=== PATIENT | female | born 1960 | race Hispanic/Latino ===

== ENCOUNTER 2021-12-10 13:51 | Emergency (ER) | payer OTHER ==
[~2021-12-10] VITALS: Ht 162.6 cm; Wt 90.7 kg
[2021-12-10 13:53] VITALS: BP 162/67
[2021-12-10] MEDS ORDERED: CEPH500B PO (15:25)
== END 2021-12-10 15:57 | disposition home or self-care (01) ==
LOC: EDH 13:51
DX: L03.116 Cellulitis of left lower limb (principal); M32.9 Systemic lupus erythematosus, unspecified; J45.909 Unspecified asthma, uncomplicated; I10 Essential (primary) hypertension
CPT/HCPCS: 93971

== ENCOUNTER 2024-04-01 13:43 | Observation (INO) | payer BC ==
[~2024-04-01] VITALS: Ht 162.6 cm; Wt 90.7 kg
--- NOTE | 2024-04-01 13:52 | EKG ---
[facility] Test Date: 2024-04-01 Test Time: 13:49:44 Pat Name: CROW PATIÑO Department: EDH Room: ED Gender: F Angiography Technologist: [id number] : 1960 Requested By: MIHAELA SHAH Order Number: [id number] Reading MD: Arthur Baca Measurements Intervals [place] Rate: 101 P: 72 MS: 136 QRS: 51 QRSD: 99 T: 41 QT: 346 QTc: 448 Interpretive Statements Sinus tachycardia No previous ECG available for comparison Electronically Signed On 04-01-2024 20:02:49 [employer]OX INSPECT[employer] by Arthur Baca Please click the below link to view image of tracing.
[2024-04-01 14:20] LABS: BASOPHILS # (AUTO) 0.02 K/uL (0.00-0.20); BASOPHILS % (AUTO) 0.2 % (0.0-5.0); HEMATOCRIT 35.5 % (36-48); IMMATURE GRANULOCYTE ABSOLUTE 0.08 K/uL (0-1); LYMPHOCYTES # (AUTO) 1.1 K/uL (1.0-4.8); LYMPHOCYTES % (AUTO) 8.4 % (21.0-51.0); MEAN CORPUSCULAR HEMOGLOBIN 26.5 pg (27.0-33.0); MEAN CORPUSCULAR HGB CONC 32.1 g/dL (32.0-36.0); MEAN CORPUSCULAR VOLUME 82.4 fL (79-99); MONOCYTES # (AUTO) 0.7 K/uL (0.1-1.0); MONOCYTES % (AUTO) 5.1 % (3.0-13.0); NEUTROPHILS # (AUTO) 11.4 K/uL (1.8-7.7); NEUTROPHILS % (AUTO) 85.7 % (40.0-77.0); PLATELET COUNT (AUTO) 290 K/uL (130-400); RED BLOOD CELL COUNT(AUTO) 4.31 MIL/uL (4.00-5.50); RED CELL DISTRIBUTION WIDTH 14.4 % (11.0-15.5); WHITE BLOOD COUNT (AUTO) 13.3 K/uL (4.8-10.8)
[2024-04-01 14:29] LABS: CREATININE 0.8 mg/dL (0.5-1.0); POTASSIUM 3.8 mmol/L (3.5-5.1)
--- NOTE | 2024-04-01 14:29 | HMCIMG ---
CHEST 1VW REASON: CP COMPARISON: None. FINDINGS: Single view of the chest was obtained. Lungs are clear. Heart size is normal. There is no pulmonary vascular congestion. Mediastinum and bony thorax appear unremarkable. IMPRESSION: 1. Normal single view chest x-ray.
[2024-04-01 14:39] LABS: ALBUMIN 3.5 g/dL (3.5-5.0); BILIRUBIN,DIRECT 0.2 mg/dL (0.0-0.3); BILIRUBIN,TOTAL 0.4 mg/dL (0.2-1.0)
[2024-04-01 14:45] LABS: B-TYPE NATRIURETIC PEPTIDE 118 pg/mL (0-100)
[2024-04-01] MEDS: ketOROlac 15MG/ML VIAL (15MG/ML) IV ONE (14:53)
[2024-04-01] MEDS: Solu-medROL 40MG VIAL IVP ONE (14:53)
--- NOTE | 2024-04-01 15:01 | ERN ---
General Chief Complaint: Chest Pain Stated Complaint: SENT BY DRCHEST PAIN Time Seen by MD: 13:46 History of Present Illness Initial Comments 64-year-old female history of hypertension and lupus, presents for left-sided chest pain for about 24 hours or so now. She has a reported pain such as this in the past. See associated with her lupus. She took steroids in the past and the pain resolved. Today she has taken 40 mg of prednisone oral, but she reports the pain persists. Described as left-sided chest pain. Does increase with lying flat and with certain positions. She reports mild shortness of breath. No dizziness, no vomiting, no cough congestion or sore throat, no other major complaints. Allergies: Coded Allergies: Sulfa (Sulfonamide Antibiotics) (Unverified Allergy, Unknown, 12/10/21) Home Meds Reported Medications Prednisone (Prednisone) 5 Mg Tablet, 5 MG PO DAILY, TAB 04/01/24 Hydroxychloroquine Sulfate (Hydroxychloroquine Sulfate) 200 Mg Tablet, 200 MG PO DAILY, TAB 04/01/24 Doxepin HCl (Doxepin HCl) 10 Mg Capsule, 10 MG PO HS, CAP 04/01/24 Montelukast Sodium (Montelukast Sodium) 10 Mg Tablet, 10 MG PO DAILY, TAB 04/01/24 Omeprazole (Omeprazole) 20 Mg Capsule.dr, 20 MG PO BID, CAP 04/01/24 Losartan Potassium (Losartan Potassium) 100 Mg Tablet, 100 MG PO HS, TAB 04/01/24 Past Medical History Past Medical History: Asthma, Hypertension, Other Medical History Other: LUPUS Past Surgical History: None ROS Dictation CONSTITUTIONAL: No chills, no fever, no weakness, no diaphoresis, no malaise. HEAD/FACE: No signs of trauma. EENT: No eye pain, no blurred vision, no tearing, no double vision, no ear pain, no ear discharge, no nose pain, no nasal congestion, no throat pain, no throat swelling, no mouth pain. RESPIRATORY: No cough, no orthopnea, no SOB, no stridor, no wheezing. CARDIOVASCULAR: Chest pain GASTROINTESTINAL/ABDOMINAL: No abdominal pain, no constipation, no diarrhea, no nausea, no vomiting. GENITOURINARY: No abnormal discharge, no dysuria, no frequent urination, no hematuria. No complaints of pain in the genitals. MUSCULOSKELETAL: No back pain, no gout, no joint pain, no joint swelling, no muscle pain, no muscle stiffness, no neck pain. INTEGUMENTARY: No change in color, no change in hair/nails, no dryness, no lesion, no lumps, no rash. NEUROLOGICAL/PSYCH: No anxiety, not depressed, no emotional problem, no headache, no numbness, no pre-existing deficit, no history of seizures, no tremors, no weakness. HEMATOLOGIC/LYMPHATIC: Not anemic, no history of blood clots, no apparent bleeding, no bruising, glands not swollen. All Systems Negative, Except as Noted. Physical Exam Physical Exam Dictation VITAL SIGNS: Reviewed. GENERAL APPEARANCE: Alert, oriented x3, no acute distress, obese. HEAD AND FACE: Non-traumatic. EYES: PERRL, pink conjunctivas, eyelid no trauma, anterior chamber clear. EARS: Pinnas intact and no signs of trauma or erythema. Ear canals clear and no discharge. TMs no erythema. NOSE: No discharge, no bleeding. OROPHARYNX: Mouth normal, teeth no caries, tongue pink. Pharynx clear, no erythema. Tonsils no exudates, no abscesses noted. Mucous membrane moist. NECK: Supple, non-tender, no thyromegaly, no masses, no JVD, no bruits. BREAST: Deferred. CHEST: No tenderness, no crepitus, no paradoxical movement, no retractions. LUNGS: Clear, well-ventilated, symmetric, no rales, no wheezing, no rhonchi, no stridor, good breath sounds bilaterally. HEART: Regular rate, regular rhythm, no murmur, no gallops. VASCULAR: No peripheral edema. ABDOMEN: Soft, positive bowel sounds, nondistended, no guarding, nontender, no rebound, no masses no hepatomegaly, no splenomegaly, no Quiros's sign, no hernias. RECTAL: Deferred. GENITAL: Deferred. NEUROLOGICAL: Normal speech, gross motor function intact, gross sensory function intact. MUSCULOSKELETAL: Neck nontender, full range of motion, back nontender, full range of motion. EXTREMITIES: Nontender, full range of motion. SKIN: Color pink, dry, no turgor, no rash, no lacerations, no abrasions, no contusions. LYMPHATICS: Deferred. Results Laboratory and Microbiology Lab and Micro Result Laboratory Tests Test 04/01/24 14:11 White Blood Count 13.3 K/uL (4.8-10.8) H Red Blood Count 4.31 MIL/uL (4.00-5.50) Hemoglobin 11.4 g/dL (12.0-16.0) L Hematocrit 35.5 % (36-48) L Mean Corpuscular Volume 82.4 fL (79-99) Mean Corpuscular Hemoglobin 26.5 pg (27.0-33.0) L Mean Corpuscular Hemoglobin Concent 32.1 g/dL (32.0-36.0) Red Cell Distribution Width 14.4 % (11.0-15.5) Platelet Count 290 K/uL (130-400) Mean Platelet Volume 10.4 fL (7.5-10.5) Immature Granulocyte % (Auto) 0.6 % (0-1) Neutrophils (%) (Auto) 85.7 % (40.0-77.0) H Lymphocytes (%) (Auto) 8.4 % (21.0-51.0) L Monocytes (%) (Auto) 5.1 % (3.0-13.0) Eosinophils (%) (Auto) 0.0 % (0.0-8.0) Basophils (%) (Auto) 0.2 % (0.0-5.0) Neutrophils # (Auto) 11.4 K/uL (1.8-7.7) H Lymphocytes # (Auto) 1.1 K/uL (1.0-4.8) Monocytes # (Auto) 0.7 K/uL (0.1-1.0) Eosinophils # (Auto) 0.00 K/uL (0.00-0.70) Basophils # (Auto) 0.02 K/uL (0.00-0.20) Absolute Immature Granulocyte (auto 0.08 K/uL (0-1) Nucleated Red Blood Cells 0.0 % (0.0-0.19) White Cell Morphology Comment See comments Erythrocyte Sedimentation Rate 50 MM/HR (0-30) H D-Dimer Quantitative (PE/DVT) 428 ng/mL (0-500) Sodium Level 138 mmol/L (136-145) Potassium Level 3.8 mmol/L (3.5-5.1) Chloride Level 101 mmol/L (101-111) Carbon Dioxide Level 28 mmol/L (21-32) Blood Urea Nitrogen 17 mg/dL (7-18) Creatinine 0.8 mg/dL (0.5-1.0) Glomerular Filtration Rate Calc 83 mL/min (>90) Random Glucose 127 mg/dL (70-105) H Hemoglobin A1c 5.5 % (4.0-6.0) Estimated Average Glucose (eAG) 111 mg/dL (70-126) Total Calcium 9.3 mg/dL (8.5-10.1) Total Bilirubin 0.4 mg/dL (0.2-1.0) Direct Bilirubin 0.2 mg/dL (0.0-0.3) Aspartate Amino Transf (AST/SGOT) 16 U/L (10-37) Alanine Aminotransferase (ALT/SGPT) 30 U/L (12-78) Alkaline Phosphatase 94 U/L (50-136) Total Creatine Kinase 78 U/L (21-232) Troponin I High Sensitivity 7 ng/L (4-50) C-Reactive Protein, Quantitative 73.90 mg/L (0.5-3.0) H B-Type Natriuretic Peptide 118 pg/mL (0-100) H Total Protein 8.0 g/dL (6.0-8.3) Albumin 3.5 g/dL (3.5-5.0) Lipase 19 U/L (16-77) Procalcitonin < 0.05 ng/mL (0.05-0.5) L Thyroid Stimulating Hormone (TSH) 0.80 uIU/mL (0.36-3.74) MDM CC: Chest pain Historian: Patient Comorbidities: Lupus, hypertension Limitations by social determinants of health: None Differential diagnosis: Pericarditis, ACS, pneumonia, pneumothorax, vascular pathology, other. EKG: Sinus rhythm, tachycardia, rate of 101, normal axis, good R-wave progression, intervals are stable. No STEMI. Independently interpreted by me. Vital signs: Mild tachycardia heart rate of 102, mild hypertension 153/86 otherwise vital signs stable and remained stable. Clinical exam is unremarkable. CXR (Independently interpreted by me): No focal infiltrates cardiomegaly or other abnormalities. Labs ( independently ordered and interpreted by me ): Leukocytosis 13.3k, left shift. No bands. Mild normocytic anemia hemoglobin 11.4.D-dimer is negative. Chemistry panel is negative. Liver enzymes are normal. Troponin is normal. Lipase is normal. BNP 118. The CRP is 73.9. Low risk Wells and negative D- dimer low suspicion for PE. I do not see any signs of ACS, but she has a heart score of three based on story, risk factors, age. Patient was given IV Toradol and steroids here in the ER. I suspect he may have pericarditis based on the presentation. We will admit for observation and further cardiac workup. Patient is agreeable to plan. ED Course Orders Procedure Category Date Status Time Cbc With Differential LAB 04/01/24 Complete 13:46 B-Type Natriuretic LAB 04/01/24 Complete Peptide 13:46 Chest 1vw RAD 04/01/24 Resulted 13:46 12 Lead Ekg Tracing- EKG 04/01/24 Complete Technical 13:46 Troponin I High LAB 04/01/24 Complete Sensitivity 13:46 Basic Metabolic Panel LAB 04/01/24 Complete 13:46 Lipase LAB 04/01/24 Complete 13:46 Hepatic Function Panel LAB 04/01/24 Complete 13:46 12 Lead Ekg Tracing- EKG 04/01/24 Logged Technical 13:46 Crp Quantitative LAB 04/01/24 Complete 13:57 Erythrocyte LAB 04/01/24 Complete Sedimentation Rate 13:57 D-Dimer LAB 04/01/24 Complete 13:57 Ketorolac PHA 04/01/24 Complete Tromethamine 15mg/Ml 14:00 Methylprednisolone PHA 04/01/24 Complete Succ 40mg (Solu-Medro 14:00 Current Medications Medications (Trade) Dose Ordered Sig/Rudy Route PRN Reason Start Time Stop Time Status Last Admin Dose Admin Ketorolac Tromethamine (toRADol) 15 mg ONCE ONCE IV 04/01/24 14:00 04/01/24 14:01 DC 04/01/24 14:53 Methylprednisolone Sodium Succinate (Solu-medROL 40MG) 40 mg ONCE ONCE IVP 04/01/24 14:00 04/01/24 14:01 DC 04/01/24 14:53 Vital Signs Date Time Temp Pulse Resp B/P (MAP) Pulse Ox O2 Delivery O2 Flow Rate FiO2 04/01/24 15:07 97.9 92 16 138/68 95 Room Air* 0 21 04/01/24 14:01 98.6 102 20 153/86 97 Room Air 0 DX & DISP Disposition: Inpatient Departure Impression: Primary Impression: Chest pain Condition: Stable Referrals: SELF,REFERRAL (PCP) MIHAELA SHAH DO Apr 01, 2024 15:01
[2024-04-01] MEDS ORDERED: OMEP20CA12 PO (16:14)
[2024-04-01] MEDS ORDERED: MONT-39 PO (16:14)
[2024-04-01] MEDS ORDERED: DOXE10CA2 PO (16:14)
[2024-04-01] MEDS ORDERED: PRED5TAB PO (16:14)
[2024-04-01] MEDS ORDERED: HYDR200T75 PO (16:14)
[2024-04-01] MEDS ORDERED: LOSA100T59 PO (16:14)
--- NOTE | 2024-04-01 16:27 | HP ---
[facility] Date of Service: Apr 01, 2024 Time of Service: 16:27 HISTORY OF PRESENT ILLNESS: DATE OF SERVICE: 04/01/2024 This 64-year-old female with past medical history of hypertension, history of lupus, history of hiatal hernia who presented to the hospital secondary to chest pain. Patient states since yesterday she has noted midsternal chest pain which radiates to her left neck. She denies any paresthesias in the upper extremity, nausea, vomiting associated with the pain. She does feel her midsternal area is tender to palpation and also gets pain with deep inspiration. She feels the pain is worse with lying flat and also with bending down. She has also felt short of breath with ambulation. She currently sees Rheumatology in [place]. She is on prednisone and Plaquenil for lupus. She denied any falls, syncopal episode. Denied any fever, chills. She feels she has generalized body aches. Secondary to non improving symptoms patient thereafter came to the ED for further evaluation. The patient's labs showed white count of 13.3, hemoglobin was 11.4, platelet count was 290k, sodium was 138, potassium was 3.8, creatinine was 0.8, blood glucose was 127, troponin was negative x1, BNP was 1 one eight Chest x-ray showed no acute infiltrates REVIEW OF SYSTEMS CONSTITUTIONAL: Denies fevers, chills, or night sweats. No unintentional weight loss reported. NEUROLOGICAL: Denies headache, amaurosis fugax, motor weakness, sensory de ficit, vertigo/spinning sensation, gait abnormalities, or tremors. ENT: No hearing loss, otalgia, otorrhea, rhinitis, rhinorrhea, hoarseness, or sore throat. CARDIOVASCULAR: Positive for chest pain, dyspnea on exertion. Denied any palpitations, orthopnea, PND PULMONARY: Denies any, cough, phlegm/sputum, hemoptysis, pleuritic chest pain. Positive for shortness of breath GASTROINTESTINAL: Denies any type of dysphagia to either liquids or solids. Denies nausea, vomiting, pyrosis, early satiety, abdominal pain, diarrhea, constipation, or changes in stool consistency or caliber. Denies coffee-ground emesis, hematemesis, hematochezia, or melanotic stools. GENITOURINARY: Denies frequency, urgency, nocturia, hematuria or incontinence (Storage/Irritative symptoms.) Low urinary stream, straining to void, urinary intermittency or hesitancy, splitting of the voiding stream, terminal dribbling. ENDOCRINOLOGIC: Denies polyuria, polydipsia, polyphagia or heat/cold intolerances. HEMATOLOGIC: Denies thrombophilia/previous clots, or coagulopathy/bleeding disorders. ONCOLOGIC: Denies personal history of malignancy. DERMATOLOGIC: Denies rashes or pruritus. PSYCHIATRIC: Denies any suicidal or homicidal ideation. Denies hallucinations. PAST MEDICAL HISTORY: Hypertension, history of lupus, history of hiatal hernia PAST SURGICAL HISTORY: Denied any previous surgical history PAST SOCIAL HISTORY: Denied any smoking, alcohol, drug use FAMILY HISTORY: Denied any pertinent family history Coded Allergies: Sulfa (Sulfonamide Antibiotics) (Unverified Allergy, Unknown, 12/10/21) PHYSICAL EXAM GENERAL APPEARANCE: The patient is awake, alert, and oriented, in no acute cardiopulmonary distress. NEUROLOGICAL: Cranial nerves II-XII grossly intact. Motor is 5/5 in bilateral upper and lower extremities proximal to distal. No sensory deficits. HEENT: Face is symmetric. Pupils are equal and reactive. Extraocular movements are intact. NECK: Supple. No JVD. No thyromegaly. No submental, submandibular, pre- /postauricular, occipital or supraclavicular lymphadenopathy. CHEST: Normal chest expansion. No Telemetry. She has tenderness to palpation in the midsternal area LUNGS: Absence of any rales, rhonchi or any wheezing. CARDIOVASCULAR: Regular. S1 and S2 normal. No appreciable rubs, murmurs or gallops. ABDOMEN: Soft, nontender, and nondistended. There is no rebound, voluntary guarding, or rigidity. : Deferred. No [place]. EXTREMITIES: Non-edematous and not cyanotic. No clubbing. Good capillary refill. SKIN: No skin breakdown. Vital Sign (Last 24 Hours) 04/01/24 15:07 Temp 97.9 Pulse 92 Resp 16 B/P (MAP) 138/68 Pulse Ox 95 O2 Delivery Room Air* O2 Flow Rate 0 FiO2 21 LABS: Laboratory: Test 04/01/24 14:11 Range/Units White Blood Count 13.3 H 4.8-10.8 K/uL Red Blood Count 4.31 4.00-5.50 MIL/uL Hemoglobin 11.4 L 12.0-16.0 g/dL Hematocrit 35.5 L 36-48 % Mean Corpuscular Volume 82.4 79-99 fL Mean Corpuscular Hemoglobin 26.5 L 27.0-33.0 pg Mean Corpuscular Hemoglobin Concent 32.1 32.0-36.0 g/dL Red Cell Distribution Width 14.4 11.0-15.5 % Platelet Count 290 130-400 K/uL Mean Platelet Volume 10.4 7.5-10.5 fL Immature Granulocyte % (Auto) 0.6 0-1 % Neutrophils (%) (Auto) 85.7 H 40.0-77.0 % Lymphocytes (%) (Auto) 8.4 L 21.0-51.0 % Monocytes (%) (Auto) 5.1 3.0-13.0 % Eosinophils (%) (Auto) 0.0 0.0-8.0 % Basophils (%) (Auto) 0.2 0.0-5.0 % Neutrophils # (Auto) 11.4 H 1.8-7.7 K/uL Lymphocytes # (Auto) 1.1 1.0-4.8 K/uL Monocytes # (Auto) 0.7 0.1-1.0 K/uL Eosinophils # (Auto) 0.00 0.00-0.70 K/uL Basophils # (Auto) 0.02 0.00-0.20 K/uL Absolute Immature Granulocyte (auto 0.08 0-1 K/uL Nucleated Red Blood Cells 0.0 0.0-0.19 % White Cell Morphology Comment See comments Erythrocyte Sedimentation Rate 50 H 0-30 MM/HR D-Dimer Quantitative (PE/DVT) 428 0-500 ng/mL Sodium Level 138 136-145 mmol/L Potassium Level 3.8 3.5-5.1 mmol/L Chloride Level 101 101-111 mmol/L Carbon Dioxide Level 28 21-32 mmol/L Blood Urea Nitrogen 17 7-18 mg/dL Creatinine 0.8 0.5-1.0 mg/dL Glomerular Filtration Rate Calc 83 >90 mL/min Random Glucose 127 H 70-105 mg/dL Total Calcium 9.3 8.5-10.1 mg/dL Total Bilirubin 0.4 0.2-1.0 mg/dL Direct Bilirubin 0.2 0.0-0.3 mg/dL Aspartate Amino Transf (AST/SGOT) 16 10-37 U/L Alanine Aminotransferase (ALT/SGPT) 30 12-78 U/L Alkaline Phosphatase 94 50-136 U/L Troponin I High Sensitivity 7 4-50 ng/L C-Reactive Protein, Quantitative 73.90 H 0.5-3.0 mg/L B-Type Natriuretic Peptide 118 H 0-100 pg/mL Total Protein 8.0 6.0-8.3 g/dL Albumin 3.5 3.5-5.0 g/dL Lipase 19 16-77 U/L Current Medications Medications (Trade) Dose Ordered Sig/Rudy Route PRN Reason Start Time Stop Time Status Last Admin Dose Admin Acetaminophen (TYLenol 500MG TAB) 500 mg Q6H PRN PO MILD PAIN (1-3) 04/01/24 16:30 05/01/24 16:29 Aspirin (Aspirin 81mg Chew Tab) 81 mg DAILY PO 04/02/24 09:00 05/02/24 08:59 Miscellaneous Medication (Doxepin HCl ) 10 mg HS PO 04/01/24 21:00 05/01/24 20:59 UNV Montelukast Sodium (SinguLAIR) 10 mg DAILY PO 04/02/24 09:00 05/02/24 08:59 UNV Pantoprazole Sodium (PROTonix 40MG INJ) 40 mg BID IVP 04/01/24 21:00 05/01/24 20:59 Prednisone (deltaSONE/ oraSONE 5MG) 5 mg DAILY PO 04/02/24 09:00 05/02/24 08:59 UNV DIAGNOSTICS / RADIOLOGY: [ ] ASSESSMENT: Chest pain ACS rule out POA differential musculoskeletal versus pericarditis versus ACS History of SLE Chronic steroid therapy Leukocytosis likely in setting of steroid History of hiatal hernia History of hypertension PLAN: - patient to be admitted to medical-surgical unit with telemetry -in reference to chest pain. We will trend troponins q.6 hours to rule out ACS. We will also obtain echocardiogram. We will check ESR. We will also request consultation with Cardiology due to concern for possible pericarditis -patient's home medications will be reconciled once available. Per patient she takes losartan at bedtime. She is on plaquenil and prednisone for lupus. -check TSH, A1c, procal, CRP. Also obtain a blood culture -further orders per hospitalization course Advanced Care Planning Which of the following were discussed: Hospice care: Yes __ No _x_ Therapeutic options: Yes __ No __ Advance directives: Yes __ No __ Other discussions: Pt si full code Discussed with who?: patient (Patient, family or surrogates) Voluntary nature of this service was explained to the patient? Yes x__ No __ Amount of time spent: 25 minutes JOEY Starr MD, MD Apr 01, 2024 16:27
[2024-04-01] MEDS ORDERED: acetaMINOPHEN 500 MG TABLET PO PRN (16:30)
[2024-04-01 17:07] LABS: HEMOGLOBIN A1C 5.5 % (4.0-6.0)
[2024-04-01] MEDS ORDERED: NITROGLYCERIN 0.4 MG SL TAB SL PRN (17:30)
--- NOTE | 2024-04-01 17:59 | CONS ---
[facility] CONSULTATION REPORT Cardiology consultation note dictated for Arthur Baca MD Date Patient Seen: Apr 01, 2024 Requesting Physician: Keri Rankin MD Reason for Consultation: Chest pain, possible pericarditis History of Present Illness: This is a 64-year-old female with a past medical history of hypertension, lupus, asthma, hiatal hernia, and GERD who presented to the ED with complaints of chest discomfort of 1 day in duration. Cardiology has been consulted for chest pain with possible pericarditis. Yesterday at 1400, the patient began to experience midsternal chest discomfort that radiated to her left clavicle and ear. She described is as a pressure-like quality and with a throbbing sensation that has been constant with a 6/10 intensity. Symptoms are aggravated by lying flat, lying on her sides, deep breathing, and with palpation of her mid chest. Symptoms are decreased to a 1- 2/10 intensity with sitting up. She states one year ago, she had a similar episode that was relieved with a higher dose of oral prednisone. Overall, she took 40mg of prednisone yesterday trying to relieve her discomfort, but it did not help, so she decided to seek medical attention. She has received Solu- Medrol 40 mg IV x1 and Toradol 15 mg IV x1 at 1453. She admitted to a decrease in intensity to a 4/10. Troponin is 7. EKG demonstrated sinus tachycardia with a heart rate of 101. CRP is 73.9. ESR is 50. BNP is 118. TSH is 0.80. Echo is pending to be done. Past Medical History: As per HPI and summarized below Past Surgical History: None Family History: Noncontributory Social History: The patient lives with family. Habits: The patient denies alcohol, tobacco, or illicit drug use. Home Meds: Doxepin 10 mg q.h.s. Hydroxychloroquine 200 mg daily Singulair 10 mg daily Omeprazole 20 mg b.i.d. Prednisone 5 mg daily Losartan 100 mg q.h.s. Current Meds: Current Medications Medications Dose Ordered Sig/Rudy Start Time Stop Time Status Last Admin Pantoprazole Sodium 40 mg BID 04/01/24 21:00 05/01/24 20:59 Acetaminophen 500 mg Q6H PRN 04/01/24 16:30 05/01/24 16:29 Aspirin 81 mg DAILY 04/02/24 09:00 05/02/24 08:59 Montelukast Sodium 10 mg DAILY 04/02/24 09:00 05/02/24 08:59 Prednisone 5 mg DAILY 04/02/24 09:00 05/02/24 08:59 Home Med Doxepin HCl 10 MG HS 04/01/24 21:00 05/01/24 20:59 Hydroxychloroquine Sulfate 200 mg DAILY 04/02/24 09:00 04/16/24 08:59 Losartan Potassium 100 mg HS 04/01/24 21:00 05/01/24 20:59 Nitroglycerin 0.4 mg AD PRN 04/01/24 17:30 05/01/24 17:29 Review of Systems: CONST: No fever, fatigue, or weight changes. EYES: No recent vision problems. ENT: No congestion, ear pain, or sore throat. C/V: Admits to midsternal chest discomfort that is aggravated with lying flat, line to her sides, deep breathing, or with palpation. She denies palpitations or edema. RESP: No cough, congestion, wheezing or shortness of breath. GI: No abdominal pain, nausea, vomiting, constipation, or diarrhea. : No incontinence or dysuria. SKIN: No rash. NEURO: No headache, focal numbness or weakness, dizziness, or seizures. PSYCH: No depression or anxiety. HEME: No abnormal bruising or bleeding. LYMPH: No swollen glands. Physical Examination: GENERAL: No acute distress. HEAD: Normal with no signs of head trauma. EYES: PERRLA, EOMI, conjunctiva and sclera normal. ENT: Hearing grossly intact, normal oropharynx. NECK: Supple without JVD. There is no tenderness, lymphadenopathy, or masses. No thyromegaly. Normal carotid upstrokes without bruits. LUNGS: Clear breath sounds bilaterally. No wheezes, or rhonchi. HEART: Normal rate and rhythm. Normal S1 and S2 without murmurs, gallop or rub. VASC: Peripheral pulses +2 bilaterally. ABD: Bowel sounds normal, soft, nontender, no masses, no organomegaly. No audible bruits. : Not examined LYMPH: No lymphadenopathy noted. EXT: No clubbing, cyanosis or edema. SKIN: No rashes or lesions noted. NEURO: Awake, alert, and oriented x3. No focal sensory or strength deficits noted. Vital Signs (last 8hr) Date Time Temp Pulse Resp B/P (MAP) Pulse Ox O2 Delivery O2 Flow Rate FiO2 04/01/24 15:07 97.9 92 16 138/68 95 Room Air* 0 21 04/01/24 14:01 98.6 102 20 153/86 97 Room Air 0 Laboratory: Hematology Labs: Test 04/01/24 14:11 Range/Units White Blood Count 13.3 H 4.8-10.8 K/uL Red Blood Count 4.31 4.00-5.50 MIL/uL Hemoglobin 11.4 L 12.0-16.0 g/dL Hematocrit 35.5 L 36-48 % Mean Corpuscular Volume 82.4 79-99 fL Mean Corpuscular Hemoglobin 26.5 L 27.0-33.0 pg Mean Corpuscular Hemoglobin Concent 32.1 32.0-36.0 g/dL Red Cell Distribution Width 14.4 11.0-15.5 % Platelet Count 290 130-400 K/uL Mean Platelet Volume 10.4 7.5-10.5 fL Immature Granulocyte % (Auto) 0.6 0-1 % Neutrophils (%) (Auto) 85.7 H 40.0-77.0 % Lymphocytes (%) (Auto) 8.4 L 21.0-51.0 % Monocytes (%) (Auto) 5.1 3.0-13.0 % Eosinophils (%) (Auto) 0.0 0.0-8.0 % Basophils (%) (Auto) 0.2 0.0-5.0 % Neutrophils # (Auto) 11.4 H 1.8-7.7 K/uL Lymphocytes # (Auto) 1.1 1.0-4.8 K/uL Monocytes # (Auto) 0.7 0.1-1.0 K/uL Eosinophils # (Auto) 0.00 0.00-0.70 K/uL Basophils # (Auto) 0.02 0.00-0.20 K/uL Absolute Immature Granulocyte (auto 0.08 0-1 K/uL Nucleated Red Blood Cells 0.0 0.0-0.19 % White Cell Morphology Comment See comments Erythrocyte Sedimentation Rate 50 H 0-30 MM/HR Chemistry Labs: Test 04/01/24 14:11 Range/Units Sodium Level 138 136-145 mmol/L Potassium Level 3.8 3.5-5.1 mmol/L Chloride Level 101 101-111 mmol/L Carbon Dioxide Level 28 21-32 mmol/L Blood Urea Nitrogen 17 7-18 mg/dL Creatinine 0.8 0.5-1.0 mg/dL Glomerular Filtration Rate Calc 83 >90 mL/min Random Glucose 127 H 70-105 mg/dL Hemoglobin A1c 5.5 4.0-6.0 % Estimated Average Glucose (eAG) 111 70-126 mg/dL Total Calcium 9.3 8.5-10.1 mg/dL Total Bilirubin 0.4 0.2-1.0 mg/dL Direct Bilirubin 0.2 0.0-0.3 mg/dL Aspartate Amino Transf (AST/SGOT) 16 10-37 U/L Alanine Aminotransferase (ALT/SGPT) 30 12-78 U/L Alkaline Phosphatase 94 50-136 U/L Total Creatine Kinase 78 21-232 U/L Troponin I High Sensitivity 7 4-50 ng/L C-Reactive Protein, Quantitative 73.90 H 0.5-3.0 mg/L B-Type Natriuretic Peptide 118 H 0-100 pg/mL Total Protein 8.0 6.0-8.3 g/dL Albumin 3.5 3.5-5.0 g/dL Lipase 19 16-77 U/L Procalcitonin < 0.05 L 0.05-0.5 ng/mL Thyroid Stimulating Hormone (TSH) 0.80 0.36-3.74 uIU/mL Coagulation Labs: Test 04/01/24 14:11 Range/Units D-Dimer Quantitative (PE/DVT) 428 0-500 ng/mL Diagnostics / Radiology: Impression and Plan: Atypical chest pain HTN Lupus Asthma Hiatal hernia GERD Atypical chest pain Constant midsternal chest discomfort one day in duration, that is aggravated by laying flat, laying on her sides, deep breathing, and with palpation of her mid chest. Symptoms are decreased with sitting up. She has received Solu-Medrol 40 mg IV x1 and Toradol 15 mg IV x1 at 1453. She admitted to a decrease in intensity. Troponin is 7, next draw at 1800. Troponin has been ordered q 6 hours in the ED EKG demonstrated sinus tachycardia with a heart rate of 101, no ST elevation noted CRP is 73.9 and ESR is 50 -Start Naproxen 500mg BID -2D Echo is pending to be done. JEAN SHIELDS [facility] Apr 01, 2024 17:59
[2024-04-01] MEDS: ASPIRIN 81MG CHEW TAB PO ONE (18:03)
[2024-04-01] MEDS: NAPROXEN 500 MG TABLET PO SCH (18:06)
[2024-04-01] MEDS ORDERED: NAPROXEN 500 MG TABLET PO SCH (21:00)
[2024-04-01] MEDS: PANTOPrazole 40 MG/VIAL IVP SCH (21:06)
[2024-04-01] MEDS: LoSARTan 100 MG TABLET PO SCH (21:07)
--- NOTE | 2024-04-01 21:08 | NUR ---
PATIENT STATED SHE NO LONGER TAKES DOXEPIN, WAS DC BY HER DOCTOR
[2024-04-02 04:14] LABS: BASOPHILS # (AUTO) 0.03 K/uL (0.00-0.20); BASOPHILS % (AUTO) 0.2 % (0.0-5.0); IMMATURE GRANULOCYTE ABSOLUTE 0.08 K/uL (0-1); LYMPHOCYTES # (AUTO) 1.7 K/uL (1.0-4.8); LYMPHOCYTES % (AUTO) 12.3 % (21.0-51.0); MEAN CORPUSCULAR HEMOGLOBIN 26.5 pg (27.0-33.0); MEAN CORPUSCULAR VOLUME 82.7 fL (79-99); MONOCYTES # (AUTO) 1.2 K/uL (0.1-1.0); MONOCYTES % (AUTO) 8.3 % (3.0-13.0); NEUTROPHILS % (AUTO) 78.6 % (40.0-77.0); PLATELET COUNT (AUTO) 255 K/uL (130-400); RED BLOOD CELL COUNT(AUTO) 4.23 MIL/uL (4.00-5.50); RED CELL DISTRIBUTION WIDTH 14.5 % (11.0-15.5)
[2024-04-02 04:28] LABS: CREATININE 0.7 mg/dL (0.5-1.0); POTASSIUM 4.2 mmol/L (3.5-5.1)
[2024-04-02] MEDS: monteLUKAST sodIUM 10 MG TAB PO SCH (08:32)
[2024-04-02] MEDS: ASPIRIN 81MG CHEW TAB PO SCH (08:32)
[2024-04-02] MEDS: hydroXYCHLOroquine SULFate 200 MG TAB PO SCH (08:32)
[2024-04-02] MEDS: predniSONE 5 MG TABLET PO SCH (08:32)
--- NOTE | 2024-04-02 09:05 | PN ---
PROGRESS NOTE PROBLEM LIST: Atypical chest pain HTN Lupus Asthma Hiatal hernia GERD INTERIM HISTORY OF PRESENT ILLNESS: [Patient has since ruled out for any evidence of myocardial necrosis with serial cardiac enzymes. Patient also feels improved in regards to symptoms. She denies any further pain pressure tightness.] REVIEW OF SYSTEMS: No fever, headache, chest pain, abdominal pain, nausea, vomiting, or diarrhea. VITAL SIGNS Vital Signs Date Time Temp Pulse Resp B/P (MAP) Pulse Ox O2 Delivery O2 Flow Rate FiO2 04/02/24 08:00 98.1 92 18 163/62 100 Room Air* 0 21 Laboratory Tests 04/01/24 14:11 04/02/24 04:02 LABS/MEDS Laboratory Tests Test 04/01/24 14:11 04/01/24 17:34 04/02/24 04:02 White Blood Count 13.3 K/uL (4.8-10.8) H 14.0 K/uL (4.8-10.8) H Red Blood Count 4.31 MIL/uL (4.00-5.50) 4.23 MIL/uL (4.00-5.50) Hemoglobin 11.4 g/dL (12.0-16.0) L 11.2 g/dL (12.0-16.0) L Hematocrit 35.5 % (36-48) L 35.0 % (36-48) L Mean Corpuscular Volume 82.4 fL (79-99) 82.7 fL (79-99) Mean Corpuscular Hemoglobin 26.5 pg (27.0-33.0) L 26.5 pg (27.0-33.0) L Mean Corpuscular Hemoglobin Concent 32.1 g/dL (32.0-36.0) 32.0 g/dL (32.0-36.0) Red Cell Distribution Width 14.4 % (11.0-15.5) 14.5 % (11.0-15.5) Platelet Count 290 K/uL (130-400) 255 K/uL (130-400) Mean Platelet Volume 10.4 fL (7.5-10.5) 10.5 fL (7.5-10.5) Immature Granulocyte % (Auto) 0.6 % (0-1) 0.6 % (0-1) Neutrophils (%) (Auto) 85.7 % (40.0-77.0) H 78.6 % (40.0-77.0) H Lymphocytes (%) (Auto) 8.4 % (21.0-51.0) L 12.3 % (21.0-51.0) L Monocytes (%) (Auto) 5.1 % (3.0-13.0) 8.3 % (3.0-13.0) Eosinophils (%) (Auto) 0.0 % (0.0-8.0) 0.0 % (0.0-8.0) Basophils (%) (Auto) 0.2 % (0.0-5.0) 0.2 % (0.0-5.0) Neutrophils # (Auto) 11.4 K/uL (1.8-7.7) H 11.0 K/uL (1.8-7.7) H Lymphocytes # (Auto) 1.1 K/uL (1.0-4.8) 1.7 K/uL (1.0-4.8) Monocytes # (Auto) 0.7 K/uL (0.1-1.0) 1.2 K/uL (0.1-1.0) H Eosinophils # (Auto) 0.00 K/uL (0.00-0.70) 0.00 K/uL (0.00-0.70) Basophils # (Auto) 0.02 K/uL (0.00-0.20) 0.03 K/uL (0.00-0.20) Absolute Immature Granulocyte (auto 0.08 K/uL (0-1) 0.08 K/uL (0-1) Nucleated Red Blood Cells 0.0 % (0.0-0.19) 0.0 % (0.0-0.19) White Cell Morphology Comment See comments Erythrocyte Sedimentation Rate 50 MM/HR (0-30) H D-Dimer Quantitative (PE/DVT) 428 ng/mL (0-500) Sodium Level 138 mmol/L (136-145) 136 mmol/L (136-145) Potassium Level 3.8 mmol/L (3.5-5.1) 4.2 mmol/L (3.5-5.1) Chloride Level 101 mmol/L (101-111) 104 mmol/L (101-111) Carbon Dioxide Level 28 mmol/L (21-32) 26 mmol/L (21-32) Blood Urea Nitrogen 17 mg/dL (7-18) 19 mg/dL (7-18) H Creatinine 0.8 mg/dL (0.5-1.0) 0.7 mg/dL (0.5-1.0) Glomerular Filtration Rate Calc 83 mL/min (>90) 98 mL/min (>90) Random Glucose 127 mg/dL (70-105) H 123 mg/dL (70-105) H Hemoglobin A1c 5.5 % (4.0-6.0) Estimated Average Glucose (eAG) 111 mg/dL (70-126) Total Calcium 9.3 mg/dL (8.5-10.1) 9.0 mg/dL (8.5-10.1) Total Bilirubin 0.4 mg/dL (0.2-1.0) Direct Bilirubin 0.2 mg/dL (0.0-0.3) Aspartate Amino Transf (AST/SGOT) 16 U/L (10-37) Alanine Aminotransferase (ALT/SGPT) 30 U/L (12-78) Alkaline Phosphatase 94 U/L (50-136) Total Creatine Kinase 78 U/L (21-232) Troponin I High Sensitivity 7 ng/L (4-50) 9 ng/L (4-50) 8 ng/L (4-50) C-Reactive Protein, Quantitative 73.90 mg/L (0.5-3.0) H B-Type Natriuretic Peptide 118 pg/mL (0-100) H Total Protein 8.0 g/dL (6.0-8.3) Albumin 3.5 g/dL (3.5-5.0) Lipase 19 U/L (16-77) Procalcitonin < 0.05 ng/mL (0.05-0.5) L Thyroid Stimulating Hormone (TSH) 0.80 uIU/mL (0.36-3.74) Current Medications Ketorolac Tromethamine 15 mg ONCE ONCE IV Last administered on 04/01/24at 14:53; Start 04/01/24 at 14:00; Stop 04/01/24 at 14:01; Status DC Methylprednisolone Sodium Succinate 40 mg ONCE ONCE IVP Last administered on 04/01/24at 14:53; Start 04/01/24 at 14:00; Stop 04/01/24 at 14:01; Status DC Pantoprazole Sodium 40 mg BID IVP Last administered on 04/02/24at 08:32; Start 04/01/24 at 21:00; Stop 05/01/24 at 20:59 Acetaminophen 500 mg Q6H PRN PO; Start 04/01/24 at 16:30; Stop 05/01/24 at 16:29 Aspirin 81 mg ONCE ONCE PO Last administered on 04/01/24at 18:03; Start 04/01/24 at 16:30; Stop 04/01/24 at 16:31; Status DC Aspirin 81 mg DAILY PO Last administered on 04/02/24at 08:32; Start 04/02/24 at 09:00; Stop 05/02/24 at 08:59 Montelukast Sodium 10 mg DAILY PO Last administered on 04/02/24at 08:32; Start 04/02/24 at 09:00; Stop 05/02/24 at 08:59 Prednisone 5 mg DAILY PO Last administered on 04/02/24at 08:32; Start 04/02/24 at 09:00; Stop 05/02/24 at 08:59 Home Med Doxepin HCl 10 MG HS PO; Start 04/01/24 at 21:00; Stop 05/01/24 at 20:59 Hydroxychloroquine Sulfate 200 mg DAILY PO Last administered on 04/02/24at 08:32; Start 04/02/24 at 09:00; Stop 04/16/24 at 08:59 Losartan Potassium 100 mg HS PO Last administered on 04/01/24at 21:07; Start 04/01/24 at 21:00; Stop 05/01/24 at 20:59 Nitroglycerin 0.4 mg AD PRN SL; Start 04/01/24 at 17:30; Stop 05/01/24 at 17:29 Naproxen 500 mg BID PO; Start 04/01/24 at 21:00; Stop 04/01/24 at 18:04; Status DC Naproxen 500 mg BID PO Last administered on 04/02/24at 08:32; Start 04/01/24 at 18:30; Stop 05/01/24 at 18:29 PHYSICAL EXAMINATION: GENERAL: No acute distress. NEUROLOGIC: Cranial nerves 2-12 grossly intact. PSYCHIATRIC: Calm. TELEMETRY: Sinus rhythm ASSESSMENT: Atypical chest pain Costochondritis PLAN: At this time patient's cardiac enzymes have remained completely negative. I was at bedside when patient was having 2D echocardiography performed and I do not see any significant changes although full report will follow. If full report reveals no evidence of significant wall motion abnormalities and no evidence of significant pericardial effusion I think patient can be dismissed home. Patient may need an ischemic evaluation as an outpatient but I do not think she needs stay in the hospital for that and again can be dismissed home she currently is asymptomatic once we get results of formal 2D echocardiography. MARK EARL MD Apr 02, 2024 09:05
--- NOTE | 2024-04-02 16:17 | DS ---
Discharge Summary Hospital Course Summary: This is a 64-year-old female with past medical history of hypertension, lupus, and hiatal hernia who presented to the hospital due to chest pain. The patient reported that since the previous day, she has experienced retrosternal chest pain radiating to her left neck. She denied upper extremity paresthesia, nausea, or vomiting associated with the pain. She described tenderness to palpation of the midsternal area and pain exacerbated by deep inspiration, lying flat, and bending forward. She also reported shortness of breath with ambulation. She follows with Rheumatology in [place] and is currently on prednisone and hydroxychloroquine for lupus. She denies syncope, fever, or chills but endorses generalized body aches. given her symptoms, she presented to the ED for further evaluation. Initial laboratory results showed a WBC count of 13.3, hemoglobin of 11.4, platelet count of 290,000, sodium of 138, potassium of 3.8 , creatinine of 0.8, and blood glucose of 127. Troponin were negative, and EKG shows sinus tachycardia at 101 beats per minute with no ST elevation. Chest x-ray showed no acute infiltrates. She was admitted for ACS rule out, with differential including musculoskeletal pain, pericarditis. A 2D echocardiogram was ordered, and Cardiology was consulted. She was treated with IV Solu-Medrol 40 mg and IV Toradol 15 mg, with reported improvement in pain intensity. The echocardiogram showed no significant abnormalities, normal left ventricular function 50-55%, no wall motion abnormalities, and no pericardial effusion, effectively ruling out pericarditis. Given her negative cardiac enzymes, stable vital signs, and resolution of symptoms, the pain was most likely musculoskelet al in origin. Cardiology recommended discharge with outpatient ischemic evaluation to ensure no underlying cardiac pathology. The patient was discharged in a symptomatic condition with follow-up scheduled with her primary care physician the next day and Cardiology within 2-3 weeks. Cloth Stock Sorter(s): Cardiology Procedure(s): PATIENT: CROW PATIÑO MR#: [id number] : 1960 SEX: F AGE: 64 LOCATION: [facility] ORDER 1348 STATUS: REG ER REPORT#: [id number] SERVICE 1346 REASON: CP ORDERING PHYSICIAN: MIHAELA SHAH DO PROCEDURE: CXR1VW - CHEST 1VW CHEST 1VW REASON: CP COMPARISON: None. FINDINGS: Single view of the chest was obtained. Lungs are clear. Heart size is normal. There is no pulmonary vascular congestion. Mediastinum and bony thorax appear unremarkable. IMPRESSION: 1. Normal single view chest x-ray. DICTATED BY: JONATHAN PARR MD DATE: 04/01/241426 ELECTRONICALLY SIGNED BY: JONATHAN PARR MD DATE: 04/01/241428 PATIENT: CROW PATIÑO MR#: [id number] : 1960 SEX: F AGE: 64 LOCATION: [facility] ORDER 162 STATUS: DIS IN REPORT#: [id number] SERVICE 1618 REASON: chest pain ORDERING PHYSICIAN: JOEY ANDERSON MD PROCEDURE: ECHO CMP - ECHO 2-D COMPLETE APPROVED REPORT EXAM: Two-dimensional and M-mode echocardiogram with Doppler and color Doppler. INDICATION ICD: Chest Pain 2D Dimensions RVDd 2.8 cm LVEF(%) 77.1 (>50%) LVED Vol(simp.) 96.5 mL IVSd 1.1 (0.7-1.1cm) FS(%) 46 % LVES Vol(simp.) 43.4 mL LVDd 4.6 (3.8-5.6cm) LA (2D) 3.8 (1.6-4.0cm) LVEF(%, simp.) 55 % PWd 1.3 (0.7-1.1cm) Ao Root(2D) 2.9 (2.0-3.7cm) LA ESV INDEX (4CH) 25.50 mL/m2 IVSs 1.6 cm LVOT diam 1.8 (1.8-2.4cm) LA ESV INDEX (2CH) 31.60 mL/m2 LVDs 2.5 (2.5-4.0cm) LA ESV INDEX (BP) 32.00 mL/m2 PWs 1.8 cm Deformation Strain Apical 4 20.0 % Apical 2 18.0 % Apical 3 20.0 % Global Strain 19.0 % M-Mode Dimensions EPSS 1.0 cm LA (MM) 4.0 (1.6-4.0cm) Ao Root(MM) 2.3 (2.0-3.7cm) Aortic Valve AoV VTI 0.3 m Ao Mean GR 3.0 mmHg LVOT VTI 0.17 m CHERELLE (VMAX) 1.8 cm2 CHERELLE (VTI) 1.8 cm2 Mitral Valve MV E Vmax 76.2 cm/s DECEL Time 176 ms MV A Vmax 62.1 cm/s P 1/2 T 44 ms E/A ratio 1.2 MVA (PHT) 5.0 cm2 TDI E/E' Medial 9.6 E/E' Lateral 8.1 Medial E' Peak V 7.90 cm/s Lateral E' Peak V 9.40 cm/s Left Ventricle The left ventricle is normal size. There is normal LV segmental wall motion. GLS -19%. There is normal left ventricular wall thickness. LVEF is 50-55%. The left ventricular diastolic function is normal. Right Ventricle The right ventricle is normal size. The right ventricular systolic function is normal. Atria The left atrium size is normal. The right atrium size is normal. Aortic Valve The aortic valve is normal in structure. No aortic regurgitation is present. There is no aortic valvular stenosis. Mitral Valve The mitral valve is normal in structure. There is no mitral valve regurgitation noted. There is no mitral valve stenosis. Tricuspid Valve The tricuspid valve is normal in structure. There is no tricuspid valve regurgitation noted. Pulmonic Valve The pulmonary valve is normal in structure. There is no pulmonic valvular regurgitation. Great Vessels The aortic root is normal in size. The IVC is normal in size and collapses >50% with inspiration. Pericardium There is no pericardial effusion. Conclusion LVEF is 50-55%. DICTATED BY: AMANDEEP PLATA MD DATE: 04/02/24 0842 ELECTRONICALLY SIGNED BY: AMANDEEP PLATA MD DATE: 04/02/24 5087 Assessment/Plan: ASSESSMENT: Chest pain ACS rule out POA differential musculoskeletal versus pericarditis versus ACS History of SLE Chronic steroid therapy Leukocytosis likely in setting of steroid History of hiatal hernia History of hypertension Discharge Instructions: Follow-up with PCP in 3-5 days Follow-up with cardiology in 2-3 weeks Home Medications: Reported Medications Prednisone (Prednisone) 5 Mg Tablet, 5 MG PO DAILY, TAB 04/01/24 Hydroxychloroquine Sulfate (Hydroxychloroquine Sulfate) 200 Mg Tablet, 200 MG PO DAILY, TAB 04/01/24 Doxepin HCl (Doxepin HCl) 10 Mg Capsule, 10 MG PO HS, CAP 04/01/24 Montelukast Sodium (Montelukast Sodium) 10 Mg Tablet, 10 MG PO DAILY, TAB 04/01/24 Omeprazole (Omeprazole) 20 Mg Capsule.dr, 20 MG PO BID, CAP 04/01/24 Losartan Potassium (Losartan Potassium) 100 Mg Tablet, 100 MG PO HS, TAB 04/01/24 Continued Medications: Doxepin HCl (Doxepin HCl) 10 Mg Capsule 10 MG PO HS, CAP Hydroxychloroquine Sulfate (Hydroxychloroquine Sulfate) 200 Mg Tablet 200 MG PO DAILY, TAB Losartan Potassium (Losartan Potassium) 100 Mg Tablet 100 MG PO HS, TAB Montelukast Sodium (Montelukast Sodium) 10 Mg Tablet 10 MG PO DAILY, TAB Omeprazole (Omeprazole) 20 Mg Capsule.dr 20 MG PO BID, CAP Prednisone (Prednisone) 5 Mg Tablet 5 MG PO DAILY, TAB Time spent arranging discharge: 1-30 minutes ATTESTATION BY PHYSICIAN I have seen and examined the patient. I reviewed the documentation, medical decision making, and treatment plan as noted by the resident provider above. I agree with the findings and plan of care. Hebert Germain MD, GERARDO MD Apr 02, 2024 16:17
[2024-04-02 16:28] VITALS: BP 154/67; PULSE 90; RESP 18; TEMP 98.1; O2SAT 97
--- NOTE | 2024-04-02 19:06 | HMCSR ---
APPROVED REPORT EXAM: Two-dimensional and M-mode echocardiogram with Doppler and color Doppler. INDICATION ICD: Chest Pain 2D Dimensions RVDd2.8 cmLVEF(%)77.1 (>50%)LVED Vol(simp.)96.5 mL IVSd1.1 (0.7-1.1cm)FS(%)46 %LVES Vol(simp.)43.4 mL LVDd4.6 (3.8-5.6cm)LA (2D)3.8 (1.6-4.0cm)LVEF(%, simp.)55 % PWd1.3 (0.7-1.1cm)Ao Root(2D)2.9 (2.0-3.7cm)LA ESV INDEX (4CH)25.50 mL/m2 IVSs1.6 cmLVOT diam1.8 (1.8-2.4cm)LA ESV INDEX (2CH)31.60 mL/m2 LVDs2.5 (2.5-4.0cm)LA ESV INDEX (BP)32.00 mL/m2 PWs1.8 cm Deformation Strain Apical 420.0 % Apical 218.0 % Apical 320.0 % Global Tzucsp54.0 % M-Mode Dimensions EPSS1.0 cm LA (MM)4.0 (1.6-4.0cm) Ao Root(MM)2.3 (2.0-3.7cm) Aortic Valve AoV VTI0.3 mAo Mean GR3.0 mmHgLVOT VTI0.17 m CHERELLE (VMAX)1.8 cm2AVA (VTI) 1.8 cm2 Mitral Valve MV E Vmax76.2 cm/sDECEL Oikt141 ms MV A Vmax62.1 cm/sP 1/2 T44 ms E/A ratio1.2MVA (PHT)5.0 cm2 TDI E/E' Medial9.6E/E' Lateral8.1 Medial E' Peak V7.90 cm/sLateral E' Peak V9.40 cm/s Left Ventricle The left ventricle is normal size. There is normal LV segmental wall motion. GLS -19%. There is sky l left ventricular wall thickness. LVEF is 50-55%. The left ventricular diastolic function is normal. Right Ventricle The right ventricle is normal size. The right ventricular systolic function is normal. Atria The left atrium size is normal. The right atrium size is normal. Aortic Valve The aortic valve is normal in structure. No aortic regurgitation is present. There is no aortic valvu lar stenosis. Mitral Valve The mitral valve is normal in structure. There is no mitral valve regurgitation noted. There is no mi tral valve stenosis. Tricuspid Valve The tricuspid valve is normal in structure. There is no tricuspid valve regurgitation noted. Pulmonic Valve The pulmonary valve is normal in structure. There is no pulmonic valvular regurgitation. Great Vessels The aortic root is normal in size. The IVC is normal in size and collapses >50% with inspiration. Pericardium There is no pericardial effusion. Conclusion LVEF is 50-55%.
== END 2024-04-02 16:25 | disposition home or self-care (01) ==
LOC: EDH 13:43 → INTOOBSV 16:13 → EDHIP 16:13
PROVIDERS: ADMIT Internal Medicine; ATTEND Internal Medicine
DX: R07.89 Other chest pain (principal); J45.909 Unspecified asthma, uncomplicated; I10 Essential (primary) hypertension; K21.9 Gastro-esophageal reflux disease without esophagitis; D72.829 Elevated white blood cell count, unspecified; K44.9 Diaphragmatic hernia without obstruction or gangrene; M94.0 Chondrocostal junction syndrome [Tietze]; Z79.52 Long term (current) use of systemic steroids; Z79.899 Other long term (current) drug therapy; Z98.890 Other specified postprocedural states
CPT/HCPCS: 96375 ×2; 99285; 83036; 84443; 82550; 80076; 84484 ×3; 80048 ×2; 83880; 83690; 85025 ×2; 85378; 85651; 87040 ×2; 86140; 36415 ×2; 71045; 96374; 93005; 84145; 96376; 93306; 93356; J2919; J2470 ×2; J1885; G0378 ×5; J7512

== ENCOUNTER → 2025-01-20 | Outpatient (CLI) | payer BC ==
[~2025-01-20] MED LIST: DOXE10CA2 PO; HYDR200T75 PO; LOSA100T59 PO; MONT-39 PO; OMEP20CA12 PO; PRED5TAB PO
--- NOTE | 2025-01-20 08:43 | HMCIMG ---
DOUBLE CONTRAST UPPER GI SERIES: CLINICAL HISTORY: Nausea Finding: The study was performed using provocative maneuvers After swallowing effervescent crystal and thick barium, there is no definite intrinsic or extrinsic lesion seen in the esophagus. The stomach is normal in size, shape, and configuration. The rugal folds appear to be normal. The duodenal bulb, duodenal sweep, and upper jejunum appear to be normal. Fluoroscopy time: 1.4 minutes IMPRESSION: NORMAL DOUBLE CONTRAST UPPER GI SERIES.
== END | disposition home or self-care (01) ==
LOC: RAH 07:35
PROVIDERS: ATTEND Internal Medicine Gastroenterology
DX: K21.00 Gastro-esophageal reflux disease with esophagitis, without bleeding (principal); K44.9 Diaphragmatic hernia without obstruction or gangrene; R11.0 Nausea
CPT/HCPCS: 74240